=== PATIENT | male | born 1960 ===

== ENCOUNTER 2024-02-04 05:25 | Day surgery (SDC) | payer OTHER ==
[2024-01-28 09:44] LABS: HEMATOCRIT 44.8 % (39.0-48.0); HEMOGLOBIN 15.5 g/dL (13-16.00); MEAN CORPUSCULAR HEMOGLOBIN 31.1 pg (27.00-32.0); MEAN CORPUSCULAR HGB CONC 34.6 g/dl (32.0-36.0); PLATELET COUNT 304 K/uL (150-450); RED BLOOD COUNT 4.98 M/uL (4.00-6.00); RED CELL DISTRIBUTION WIDTH 14.5 % (11.5-14.5)
[2024-01-28 09:47] LABS: PH,URINE 5.5 (5.0-8.0); URINE APPEARANCE Clear; URINE BILIRRUBIN Negative (NEGATIVE); URINE BLOOD Negative; URINE COLOR Yellow; URINE GLUCOSE Negative (NEGATIVE); URINE KETONE Negative (NEGATIVE); URINE LEUKOCYTE Negative; URINE NITRATE Negative; URINE PROTEIN Negative (NEGATIVE); URINE UROBILINOGEN 0.2 E.U./dl
[2024-01-28 09:48] LABS: URINE BACTERIA 13.8 uL (0.0-1933); URINE EPITHELIAL CELLS 1.5 uL (0.0-38.8); URINE RBC 5.1 uL (0.0-20.8); URINE WBC 3.6 uL (0.0-23.2)
[2024-01-28 10:00] LABS: INR 1.06; PARTIAL THROMBOPLASTIN TIME 28.7 SECONDS (22.0-34.0); PROTHROMBIN TIME 11.5 SECONDS (9.0-11.5)
[2024-01-28 10:11] VITALS: BP 135/53
[2024-01-28 10:23] LABS: ALBUMIN 4.1 gm/dL (3.4-5.0); CALCIUM 9.2 mg/dL (8.5-10.1); CREATININE SERUM 0.86 mg/dL (0.70-1.30); GFR 89.25; PHOSPHOROUS 3.1 mg/dL (2.5-4.9); POTASSIUM 4.3 mEq/L (3.5-5.1)
[~2024-02-04] VITALS: Ht 172.7 cm; Wt 93.4 kg
[~2024-02-04 05:25] MED LIST: COZAAR50 MG PO; KLONOPIN; LOPRESSOR25 MG PO; PEPCID AC20 MG PO; SINGULAIR5 MG PO; TAMS0.4C PO
[2024-02-04] MEDS ORDERED: POVIDONE-IODINE 118 ML BOTT TOP ONE (08:30)
[2024-02-04] MEDS ORDERED: CIPROFLOXACIN HCL 0.175 MG/DR DROPS OTIC ONE (08:30)
[2024-02-04] MEDS ORDERED: LIDOCAINE HCL 1%/EPINEPHRINE 20ML VIAL IJ ONE (08:30)
[2024-02-04] MEDS ORDERED: EPINEPHRINE HCL/PF 1 MG/ML AMPUL IR ONE (08:30)
[2024-02-04] MEDS ORDERED: CEFAZOLIN SODIUM 1,000 MG VIAL IV ONE (08:30)
[2024-02-04] MEDS ORDERED: BACITRACIN 28.35 GM OINT.TUBE TOP ONE (08:30)
[2024-02-04] MEDS ORDERED: CIPROFLOXACIN2.5 ML OTIC (10:59)
[2024-02-04] MEDS ORDERED: CEPHALEXIN500 M1 PO (11:00)
== END 2024-02-04 12:35 | disposition home or self-care (01) ==
LOC: CIR.AMB 05:25
PROVIDERS: ATTEND Otolaryngology Otology & Neurotology
DX: H71.21 Cholesteatoma of mastoid, right ear (principal); H72.11 Attic perforation of tympanic membrane, right ear; H74.21 Discontinuity and dislocation of right ear ossicles; H90.11 Conductive hearing loss, unilateral, right ear, with unrestricted hearing on the contralateral side